=== PATIENT | male | born 1960 | race Caucasian/White ===

== ENCOUNTER 2019-06-02 09:07 | Outpatient (RCR) | payer SELFPAY | END 2019-06-15 00:01 | LOC: MPT 09:07 | PROVIDERS: Family Provider Nurse Practitioner Family; Visit Provider Licensed Practical Nurse | DX: M51.26 Other intervertebral disc displacement, lumbar region (principal) | CPT/HCPCS: 97110 ×2; 97140 ×2; 97161; G0283 ×2 ==

== ENCOUNTER 2019-06-16 12:45 | Outpatient (RCR) | payer OTHER, SELFPAY | END 2019-07-16 23:59 | disposition home or self-care (01) | LOC: MPT 12:45 | PROVIDERS: Family Provider Nurse Practitioner Family; PCP Nurse Practitioner Family; Visit Provider Licensed Practical Nurse | DX: M51.26 Other intervertebral disc displacement, lumbar region (principal) | CPT/HCPCS: 97032; 97110; 97140 ==

== ENCOUNTER 2019-10-06 06:00 | Outpatient (RCR) | payer OTHER, SELFPAY | END 2019-10-14 23:59 | disposition home or self-care (01) | LOC: MPT 06:00 | PROVIDERS: Family Provider Nurse Practitioner Family; PCP Nurse Practitioner Family; Referring Provider Specialist; Visit Provider Specialist | DX: M51.9 Unspecified thoracic, thoracolumbar and lumbosacral intervertebral disc disorder (principal); M43.16 Spondylolisthesis, lumbar region | CPT/HCPCS: 97110; 97140; 97161; G0283 ==

== ENCOUNTER 2019-10-15 06:00 | Outpatient (RCR) | payer OTHER, SELFPAY | END 2019-11-14 23:59 | disposition home or self-care (01) | LOC: MPT 06:00 | PROVIDERS: Family Provider Nurse Practitioner Family; PCP Nurse Practitioner Family; Referring Provider Specialist; Visit Provider Specialist | DX: M43.16 Spondylolisthesis, lumbar region (principal); M51.9 Unspecified thoracic, thoracolumbar and lumbosacral intervertebral disc disorder | CPT/HCPCS: 97110; 97140; G0283 ==

== ENCOUNTER 2019-12-01 10:40 | Outpatient (RCR) | payer OTHER, SELFPAY | END 2019-12-14 23:59 | disposition home or self-care (01) | LOC: SPT 10:40 | PROVIDERS: PCP Nurse Practitioner Family; Referring Provider Physical Medicine & Rehabilitation; Visit Provider Physical Medicine & Rehabilitation | DX: M54.5 Low back pain (principal); M47.816 Spondylosis without myelopathy or radiculopathy, lumbar region | CPT/HCPCS: 97012; 97110; 97162; G0283 ==

== ENCOUNTER 2019-12-15 05:09 | Outpatient (RCR) | payer OTHER, SELFPAY | END 2020-01-07 08:12 | disposition home or self-care (01) | LOC: SPT 05:09 | PROVIDERS: PCP Nurse Practitioner Family; Referring Provider Physical Medicine & Rehabilitation; Visit Provider Physical Medicine & Rehabilitation | DX: M54.5 Low back pain (principal); M47.816 Spondylosis without myelopathy or radiculopathy, lumbar region | CPT/HCPCS: 97012; 97110; G0283 ==

== ENCOUNTER → 2022-06-14 10:32 | Outpatient (BNVA) | payer OTHER, SELFPAY | PROVIDERS: PCP Nurse Practitioner Family; Visit Provider Emergency Medicine | DX: R68.89 Other general symptoms and signs (principal); J11.1 Influenza due to unidentified influenza virus with other respiratory manifestations | CPT/HCPCS: 87400; 87426 ==